=== PATIENT | male | born 1980 | race African-American/Black ===

== ENCOUNTER 2020-02-24 06:02 | Emergency (ER) | payer MEDICAID ==
[~2020-02-24] VITALS: Ht 188 cm; Wt 78.0 kg
[2020-02-24] MEDS ORDERED: IBUPROFEN 400MG TABLET PO ONE (07:00)
[2020-02-24 08:34] VITALS: BP 136/78
== END 2020-02-24 08:34 | disposition home or self-care (01) ==
LOC: ER 06:02
DX: S63.591A Other specified sprain of right wrist, initial encounter (principal); Y93.67 Activity, basketball; M19.031 Primary osteoarthritis, right wrist; Y92.310 Basketball court as the place of occurrence of the external cause
CPT/HCPCS: 29125; 73110; 73130; 99284

== ENCOUNTER 2020-10-18 07:36 | Emergency (ER) | payer MEDICAID ==
[~2020-10-18] VITALS: Ht 188 cm; Wt 76.0 kg
[2020-10-18] MEDS ORDERED: ONDANSETRON HCL 4MG/2ML INJ IV ONE ×2 (08:15→09:30)
[2020-10-18] MEDS ORDERED: SODIUM CHLORIDE 0.9% 1,000 ML IV ONE (08:15)
[2020-10-18 08:36] LABS: HEMATOCRIT. 46.4 % (42.0-52.0); HEMOGLOBIN. 15.4 g/dL (14.0-18.0); MEAN CORPUSCULAR HEMOGLOBIN 30.5 pg (28.0-32.0); MEAN CORPUSCULAR VOLUME 91.8 fL (80.0-94.0); MEAN PLATELET VOLUME 8.8 fl (7.4-10.4); PLATELET 253 x1000/uL (130-400); RED BLOOD CELL COUNT 5.06 mill/uL (4.7-6.1); RED CELL DISTRIBUTION WIDTH 14.1 % (11.6-14.6)
[2020-10-18 08:40] LABS: CHLORIDE 96 mEq/L (98-107)
[2020-10-18 09:12] LABS: PLATELET ESTIMATE NORMAL
[2020-10-18] MEDS ORDERED: MORPHINE SULFATE 4 MG/ML CPJ (NOT FOR IM USE) IV ONE (09:30)
[2020-10-18] MEDS ORDERED: IOHEXOL-300 100 ML BOTTLE ONE (11:44)
[2020-10-18 11:59] LABS: CLARITY URINE CLOUDY (CLEAR); COLOR URINE YELLOW (YELLOW); KETONES URINE 2+ (NEGATIVE); LEUKOCYTE ESTERASE URINE TRACE (NEGATIVE); NITRITE URINE NEGATIVE (NEGATIVE); OCCULT BLOOD URINE 1+ (NEGATIVE); PROTEIN URINE 2+ (NEGATIVE); SPECIFIC GRAVITY URINE 1.058 (1.005-1.030)
[2020-10-18] MEDS ORDERED: ONDA4TAB5 MT (12:55)
[2020-10-18] MEDS ORDERED: CEFP200T13 MT (12:57)
[2020-10-18] MEDS ORDERED: CEFTRIAXONE 1 G PREMIX 50 ML IV SCH (13:00)
[2020-10-18 13:30] VITALS: BP 126/70
== END 2020-10-18 14:01 | disposition home or self-care (01) ==
LOC: ER 07:36
DX: R11.10 Vomiting, unspecified (principal); R19.7 Diarrhea, unspecified; N39.0 Urinary tract infection, site not specified
CPT/HCPCS: 36415; 71045; 74177; 80053; 81003; 83690; 83735; 85025; 87086; 96374; 96375; 96376; 99285; J0696; J2270; J2405; J7030; Q9967

== ENCOUNTER 2020-10-19 10:11 | Inpatient (IN) | payer MEDICAID ==
[~2020-10-19] VITALS: Ht 188 cm; Wt 72.6 kg
[~2020-10-19 10:11] MED LIST: CEFP200T13 MT; ONDA4TAB5 MT
[2020-10-19] MEDS ORDERED: MORPHINE SULFATE 4 MG/ML CPJ (NOT FOR IM USE) IV STA (10:35)
[2020-10-19] MEDS ORDERED: ONDANSETRON HCL 4MG/2ML INJ IV STA (10:35)
[2020-10-19] MEDS ORDERED: SODIUM CHLORIDE 0.9% 1000ML BAG (SEPSIS BOLUS) IV ONE (10:45)
[2020-10-19] MEDS ORDERED: CEFTRIAXONE 1 G PREMIX 50 ML IV ONE (10:45)
[2020-10-19 11:14] LABS: BASOPHILS % 0.6 % (0.0-2.0); EOSINOPHILS % 0.2 % (0.0-5.0); HEMATOCRIT. 45.6 % (42.0-52.0); HEMOGLOBIN. 15.3 g/dL (14.0-18.0); MEAN CORPUSCULAR HEMOGLOBIN 30.2 pg (28.0-32.0); MEAN CORPUSCULAR VOLUME 90.2 fL (80.0-94.0); MEAN PLATELET VOLUME 8.9 fl (7.4-10.4); MONOCYTES % 7.8 % (2.0-8.0); NEUTROPHILS % 78.4 % (40.0-76.0); PLATELET 251 x1000/uL (130-400); RED BLOOD CELL COUNT 5.06 mill/uL (4.7-6.1); RED CELL DISTRIBUTION WIDTH 13.9 % (11.6-14.6)
[2020-10-19 11:22] LABS: CHLORIDE 97 mEq/L (98-107)
[2020-10-19 11:23] LABS: PROTHROMBIN TIME 10.9 sec (9.6-11.0)
[2020-10-19 11:30] LABS: ETHANOL BLOOD < 10 mg/dL
[2020-10-19] MEDS ORDERED: FENTANYL CITRATE/PF 50MCG/ML 2ML VIAL IV ONE (11:45)
[2020-10-19] MEDS ORDERED: POTASSIUM CHLORIDE 20MEQ TABLET SR PO ONE (13:00)
[2020-10-19 15:32] VITALS: BP 109/76
[2020-10-19 16:00] VITALS: BP 109/76
[2020-10-19] MEDS ORDERED: DEXT 5%/0.45% NACL 1000ML 1,000 ML IV SCH (17:00)
[2020-10-19 20:00] VITALS: BP 150/83
[2020-10-19] MEDS ORDERED: DIPHENHYDRAMINE 50MG/ML VIAL IV PRN (20:15)
[2020-10-19] MEDS ORDERED: CLONIDINE 0.1MG TABLET PO PRN (20:15)
[2020-10-19] MEDS ORDERED: CEFTRIAXONE 1 G PREMIX 50 ML IV SCH (20:15)
[2020-10-19] MEDS ORDERED: MAGNESIUM/ALUMINUM HYDROXIDE/SIMETHICONE 30ML UDC PO PRN (20:15)
[2020-10-19] MEDS ORDERED: IPRATROPIUM/ALBUTEROL 0.5-3(2.5)MG/3ML NEB HHN PRN (20:15)
[2020-10-19] MEDS ORDERED: HYDRALAZINE 20MG/ML VIAL IV PRN (20:15)
[2020-10-19] MEDS ORDERED: GUAIFENESIN 200MG/10ML SUGAR FREE UDC PO PRN (20:15)
[2020-10-19] MEDS ORDERED: HYDROCODONE/ACETAMINOPHEN 5/325MG TABLET PO PRN (20:15)
[2020-10-19] MEDS ORDERED: DOCUSATE SODIUM 100MG CAPSULE PO PRN (20:15)
[2020-10-19] MEDS ORDERED: MORPHINE SULFATE 2 MG/ML CPJ (NOT FOR IM USE) IV PRN (20:15)
[2020-10-19] MEDS ORDERED: LORAZEPAM 2MG/ML CPJ IV PRN (20:15)
[2020-10-19] MEDS: ACETAMINOPHEN 325MG TABLET PO PRN (20:21)
[2020-10-19] MEDS: SODIUM CHLORIDE 0.45% 1,000 ML IV SCH (20:21)
[2020-10-19] MEDS: ENOXAPARIN 40MG/0.4ML SYR SUBCUT SCH (21:09)
[2020-10-19] MEDS: SODIUM CHLORIDE 0.9% INJ 3ML FLUSH IVF SCH (21:09)
[2020-10-20] VITALS: BP 112/85
[2020-10-20 00:22] LABS: CLARITY URINE CLEAR (CLEAR); COLOR URINE YELLOW (YELLOW); KETONES URINE NEGATIVE (NEGATIVE); LEUKOCYTE ESTERASE URINE TRACE (NEGATIVE); NITRITE URINE NEGATIVE (NEGATIVE); OCCULT BLOOD URINE NEGATIVE (NEGATIVE); PH URINE 6.5 (4.5-8.0); PROTEIN URINE NEGATIVE (NEGATIVE); SPECIFIC GRAVITY URINE 1.008 (1.005-1.030); UROBILINOGEN URINE 0.2 E.U./dL (0.2-1.0)
[2020-10-20 04:00] VITALS: BP 142/77
[2020-10-20] MEDS: SODIUM CHLORIDE 0.9% INJ 3ML FLUSH IVF SCH ×3 (05:08→21:08)
[2020-10-20] MEDS: SODIUM CHLORIDE 0.45% 1,000 ML IV SCH ×2 (06:15→16:56)
[2020-10-20 06:39] LABS: BASOPHILS % 0.5 % (0.0-2.0); EOSINOPHILS % 0.5 % (0.0-5.0); HEMATOCRIT. 41.9 % (42.0-52.0); HEMOGLOBIN. 14.6 g/dL (14.0-18.0); LYMPHOCYTES % 20.7 % (20.0-50.0); MEAN CORPUSCULAR HEMOGLOBIN 31.2 pg (28.0-32.0); MEAN CORPUSCULAR VOLUME 89.6 fL (80.0-94.0); MEAN PLATELET VOLUME 9.1 fl (7.4-10.4); MONOCYTES % 10.1 % (2.0-8.0); NEUTROPHILS % 68.2 % (40.0-76.0); PLATELET 219 x1000/uL (130-400); RED BLOOD CELL COUNT 4.68 mill/uL (4.7-6.1); RED CELL DISTRIBUTION WIDTH 13.9 % (11.6-14.6)
[2020-10-20 06:46] LABS: CHLORIDE 103 mEq/L (98-107)
[2020-10-20 08:00] VITALS: BP 145/72
[2020-10-20] MEDS: ONDANSETRON HCL 4MG/2ML INJ IV PRN ×2 (08:07→18:13)
[2020-10-20] MEDS ORDERED: POTASSIUM CHLORIDE 20MEQ TABLET SR PO SCH (08:30)
[2020-10-20] MEDS: CEFTRIAXONE 1,000 MG in DEXTROSE 5% WATER 50 ML IV SCH (11:51)
[2020-10-20 12:00] VITALS: BP 131/93
[2020-10-20 16:00] VITALS: BP 118/74
[2020-10-20] MEDS: ACETAMINOPHEN 325MG TABLET PO PRN (18:12)
[2020-10-20 20:00] VITALS: BP 151/78
[2020-10-20] MEDS: ENOXAPARIN 40MG/0.4ML SYR SUBCUT SCH (21:06)
[2020-10-21] VITALS: BP 141/86
[2020-10-21] MEDS: SODIUM CHLORIDE 0.45% 1,000 ML IV SCH ×2 (02:49→11:44)
[2020-10-21 04:00] VITALS: BP 132/68
[2020-10-21] MEDS: ONDANSETRON HCL 4MG/2ML INJ IV PRN (05:09)
[2020-10-21] MEDS: ACETAMINOPHEN 325MG TABLET PO PRN (05:09)
[2020-10-21] MEDS: SODIUM CHLORIDE 0.9% INJ 3ML FLUSH IVF SCH (05:11)
[2020-10-21 08:00] VITALS: BP 103/74
[2020-10-21 09:57] LABS: BASOPHILS % 0.5 % (0.0-2.0); EOSINOPHILS % 1.2 % (0.0-5.0); HEMATOCRIT. 44.3 % (42.0-52.0); HEMOGLOBIN. 15.1 g/dL (14.0-18.0); LYMPHOCYTES % 24.4 % (20.0-50.0); MEAN CORPUSCULAR HEMOGLOBIN 30.8 pg (28.0-32.0); MEAN CORPUSCULAR VOLUME 90.4 fL (80.0-94.0); MONOCYTES % 10.9 % (2.0-8.0); PLATELET 247 x1000/uL (130-400); RED BLOOD CELL COUNT 4.91 mill/uL (4.7-6.1); RED CELL DISTRIBUTION WIDTH 13.3 % (11.6-14.6)
[2020-10-21 10:29] LABS: CHLORIDE 101 mEq/L (98-107)
[2020-10-21] MEDS: CEFTRIAXONE 1,000 MG in DEXTROSE 5% WATER 50 ML IV SCH (10:51)
[2020-10-21] MEDS ORDERED: POTASSIUM CHLORIDE 20MEQ TABLET SR PO NR (11:30)
[2020-10-21 12:00] VITALS: BP 119/95
[2020-10-21 12:26] VITALS: BP 119/45
== END 2020-10-21 12:59 | disposition home or self-care (01) | DRG 463 ==
LOC: ER 10:11 → EDBEDREQ 10:39 → EDBEDREQTM 10:59 → EDBEDREQ 10:59 → EDBEDREQTM 11:08 → EDBEDREQSVC 11:08 → 5WST 11:38 → EDBEDREQ 11:42 → ENRESERV 13:58 → 5WST 15:33
PROVIDERS: ADMIT Internal Medicine; ATTEND Internal Medicine
DX: N39.0 Urinary tract infection, site not specified (principal); E87.1 Hypo-osmolality and hyponatremia; R65.10 Systemic inflammatory response syndrome (SIRS) of non-infectious origin without acute organ dysfunction; E87.6 Hypokalemia; M41.9 Scoliosis, unspecified; R00.1 Bradycardia, unspecified; Z87.440 Personal history of urinary (tract) infections
CPT/HCPCS: 36415; 71045; 76700; 80048; 80053; 80320; 81003; 83605; 83880; 84145; 84484; 85025; 93005; 99291; J0696; J1650; J2270; J2405; J7030; J7060; G0480

== ENCOUNTER 2021-05-25 11:33 | Emergency (ER) | payer MEDICAID ==
[~2021-05-25] VITALS: Ht 188 cm; Wt 75.0 kg
[2021-05-25 11:54] LABS: CLARITY URINE CLOUDY (CLEAR); COLOR URINE YELLOW (YELLOW); KETONES URINE 1+ (NEGATIVE); LEUKOCYTE ESTERASE URINE 3+ (NEGATIVE); NITRITE URINE NEGATIVE (NEGATIVE); OCCULT BLOOD URINE 3+ (NEGATIVE); PH URINE 5.5 (4.5-8.0); PROTEIN URINE 2+ (NEGATIVE); SPECIFIC GRAVITY URINE 1.026 (1.005-1.030)
[2021-05-25] MEDS ORDERED: IBUPROFEN 600MG TABLET PO ONE (12:45)
[2021-05-25] MEDS ORDERED: DOXYCYCLINE HYCLATE 100MG CAPSULE PO ONE (12:45)
[2021-05-25] MEDS ORDERED: LIDOCAINE HCL 1% 20ML VIAL (Pyxis) INJ INFIL ONE (12:45)
[2021-05-25] MEDS ORDERED: CEFTRIAXONE SODIUM 500 MG/VIAL IM ONE (12:45)
[2021-05-25] MEDS ORDERED: DOXY100C5 MT (12:46)
[2021-05-25] MEDS ORDERED: IBUP-2029 MT (12:46)
[2021-05-25 13:05] VITALS: BP 120/87
[2021-05-25] MEDS: LIDOCAINE HCL/PF 1% 10 MG/ML 5ML VIAL INFIL NR (13:06)
== END 2021-05-25 13:16 | disposition home or self-care (01) ==
LOC: ER 12:26
DX: N34.2 Other urethritis (principal); Z87.440 Personal history of urinary (tract) infections; Z79.899 Other long term (current) drug therapy
CPT/HCPCS: 81003; 87086; 96372; 99283; J0696; J3490